=== PATIENT | female | born 1950 | race Caucasian/White ===

== ENCOUNTER 2023-05-05 20:27 | Emergency (ER) | payer OTHER, MEDICARE, SELFPAY ==
[2023-05-05] VITALS (29 sets, daily range): BP systolic 136–163; BP diastolic 68–90; PULSE 66–86; RESP 12–25; TEMP 36.6; O2SAT 97–98; BMI 30.8
--- NOTE | 2023-05-05 20:38 | ECG_ITS ---
[facility] Test Date: 2023-05-05 Pat Name: JORDI PARADA Department: Room: - Gender: Female [employer] Operator: : 1950 Requested By: [id number] Order Number: [id number] Reading MD: JAVY LOWERY Measurements Intervals Dodge Rate: 75 P: 41 KS: 134 QRS: 30 QRSD: 84 T: 36 QT: 374 QTc: 403 Interpretive Statements 1100 Sinus rhythm 9110 normal ECG No previous ECG available for comparison Electronically Signed On 05-07-2023 16:58:35 EDT by JAVY LOWERY
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
[2023-05-05] MEDS: 0.9 % SODIUM CHLORIDE 1,000 ML 999 ML IV (20:49)
[2023-05-05 20:58] LABS: Basophils Percent Auto 0.5 % (0.2-2.0); Eosinophils Absolute Auto 0.2 10^3/uL (0.0-0.7); Eosinophils Percent Auto 2.9 % (0.9-7.0); Hematocrit 40.9 % (36.0-48.0); Hemoglobin 14.1 g/dL (12.0-16.0); Immature Granulocytes Abs Auto 0.04 10^3/uL (0.00-0.03); Immature Granulocytes Pct Auto 0.5 % (0.0-0.5); Lymphocytes Absolute Auto 3.4 10^3/uL (1.2-3.8); Lymphocytes Percent Auto 41.1 % (20.5-60.0); Mean Corpuscular HGB Conc 34.5 g/dL (29.9-35.2); Mean Corpuscular Hemoglobin 30.9 pg (26.7-34.0); Mean Corpuscular Volume 89.5 fL (81.0-99.0); Mean Platelet Volume 10.4 fL (9.5-13.5); Monocytes Absolute Auto 0.8 10^3/uL (0.3-0.8); Monocytes Percent Auto 9.5 % (1.7-12.0); Neutrophils Absolute Auto 3.8 10^3/uL (1.4-6.5); Neutrophils Percent Auto 45.5 % (43.0-75.0); Platelet Count 264 10^3/uL (150-450); Red Blood Count 4.57 10^6/uL (4.20-5.40); Red Cell Distribution Width 12.3 % (11.0-15.0); White Blood Count 8.4 10^3/uL (4.0-11.0)
[2023-05-05 21:18] LABS: Alanine Aminotransferase 30 U/L (14-59); Albumin Globulin Ratio 1.1; Alkaline Phosphatase 73 U/L (46-116); Anion Gap 11.6; Aspartate Amino Transferase 22 U/L (15-37); BUN Creatinine Ratio 14.8; Bilirubin Total 0.6 mg/dL (0.2-1.0); Calcium 8.6 mg/dL (8.5-10.1); Chloride 107 mmol/L (98-107); Estimated GFR (African America >60 (>=60); Estimated GFR (Non-African Ame 50 (>=60); Globulin 3.5 g/dL; Glucose 155 mg/dL (74-106); Potassium 3.6 mmol/L (3.5-5.1); Sodium 144 mmol/L (136-145); Total Protein 7.5 g/dL (6.4-8.2); Troponin I High Sensitivity 14.2 pg/mL (4.0-51.3)
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
[2023-05-06] VITALS: BP 140/67; PULSE 68; RESP 21
[2023-05-06 00:10] VITALS: PULSE 67; RESP 20
[2023-05-06 00:14] LABS: Troponin I High Sensitivity 16.1 pg/mL (4.0-51.3)
[2023-05-06 00:15] VITALS: BP 123/66; PULSE 68; RESP 20
[2023-05-06 00:20] VITALS: PULSE 72; RESP 19
== END 2023-05-06 00:44 | disposition home or self-care (01) ==
PROVIDERS: Emergency Provider Emergency Medicine
DX: S13.4XXA Sprain of ligaments of cervical spine, initial encounter (principal); S20.219A Contusion of unspecified front wall of thorax, initial encounter; V43.62XA Car passenger injured in collision with other type car in traffic accident, initial encounter; W22.12XA Striking against or struck by front passenger side automobile airbag, initial encounter; Z79.899 Other long term (current) drug therapy
CPT/HCPCS: 36415; 70450; 71260; 72125; 74177; 80053; 80307; 84484; 85025; 93005; 99285; Q9967